=== PATIENT | female | born 1960 | race American Indian/Alaskan Native ===

== ENCOUNTER → 2018-08-13 14:22 | Outpatient (CLI) | payer OTHER, SELFPAY ==
[2018-08-13 15:24] LABS: Alanine Aminotransferase 29 IU/L (9-52); Albumin 2.3 g/dL (3.5-5.0); Albumin Globulin Ratio 0.6 (1.0-2.8); Alkaline Phosphatase 218 U/L (38-126); Aspartate Aminotransferase 50 IU/L (14-36); BUN Creatinine Ratio 12.8 (6-22); Bilirubin Total 5.7 mg/dL (0.2-1.3); Blood Urea Nitrogen 23 mg/dL (7-17); Calcium 8.6 mg/dL (8.4-10.2); Carbon Dioxide 28 mmol/L (22-32); Chloride 110 mmol/L (98-107); Estimated Glomerular Filt Rate 28.8 mL/min (>60); Glucose 92 mg/dL (70-100); HEMOLYSIS < 15 (0-50); Potassium 4.3 mmol/L (3.4-5.1); Sodium 145 mmol/L (137-145); Total Protein 6.3 g/dL (6.3-8.2)
[2018-08-13 15:40] LABS: Add Manual Diff / Slide Review NO; Basophils Percent Auto 0.3 % (0-2); Eosinophils Percent Auto 2.8 % (2-4); Hemoglobin 12.4 g/dL (12.0-16.0); Lymphocytes Percent Auto 39.8 % (25-40); Mean Corpuscular HGB Conc 33.4 % (30-36); Mean Corpuscular Hemoglobin 34.3 PG (26-34); Mean Corpuscular Volume 102.7 fL (80-100); Monocytes Percent Auto 9.7 % (3-14); Neutrophils Absolute Auto 2100 /uL (3000-5900); Neutrophils Percent Auto 47.4 % (50-75); Red Cell Distribution Width 16.3 % (11.6-14.8); White Blood Cell Count 4.4 X10^3/uL (4.5-11.0)
[2018-08-13 15:52] LABS: Platelet Count 86 X10^3/uL (150-400)
== END ==
PROVIDERS: Visit Provider Family Medicine
DX: K72.90 Hepatic failure, unspecified without coma (principal)
CPT/HCPCS: 36415; 80053; 82140; 85025